=== PATIENT | male | born 1990 | race Caucasian/White ===

== ENCOUNTER 2018-01-03 00:32 | Emergency (ER) | payer SELFPAY ==
[~2018-01-03] VITALS: Ht 177.8 cm; Wt 86.2 kg
[2018-01-03 00:58] VITALS: BP 120/72
== END 2018-01-03 03:03 | disposition left against medical advice (07) ==
LOC: ER 00:32
DX: R07.81 Pleurodynia (principal); Z53.21 Procedure and treatment not carried out due to patient leaving prior to being seen by health care provider

== ENCOUNTER 2020-04-23 22:25 | Emergency (ER) | payer MEDICAID ==
[~2020-04-23] VITALS: Ht 177.8 cm; Wt 95.3 kg
[2020-04-24] MEDS ORDERED: THIAMINE INJ 100 MG in SODIUM CHLORIDE 0.9% 1,000 ML IV ONE (00:45)
[2020-04-24] MEDS ORDERED: THIAMINE 100mg/ml INJ (200mg/2ml VIAL) ONE (01:16)
[2020-04-24 01:37] VITALS: BP 97/64
[2020-04-24 01:52] LABS: Basophils # (auto) 0 10 ^3/uL (0-0.2); Basophils % (auto) 0.5 % (0.0-2.0); Eosinophils # (auto) 0.1 10 ^3/uL (0-0.8); Hematocrit 47.8 % (41.0-53.0); Hemoglobin 16.3 g/dL (13.5-17.5); Lymphocytes # (auto) 3.6 10 ^3/uL (0.4-5.4); Lymphocytes % (auto) 49.9 % (10.0-50.0); Mean Corpuscular Hemoglobin 32.8 pg (28.0-32.0); Mean Corpuscular Hgb Conc. 34.2 g/dL (32.0-36.0); Mean Corpuscular Volume 96.1 fL (80.0-100.0); Monocytes # (auto) 0.6 10 ^3/uL (0-1.3); Monocytes % (auto) 8.7 % (0.0-12.0); Neutrophils # (auto) 2.8 10 ^3/uL (1.6-8.6); Neutrophils % (auto) 38.9 % (37.0-80.0); Nucleated Red Blood Cells % 0.1 %; Platelet Count (auto) 270 10^3/uL (140-450); Red Blood Cells 4.98 10^6/uL (4.5-5.90); Red Cell Distribution Width 13.4 % (11.8-14.3); White Blood Cell 7.3 10^3/uL (4.4-10.8)
[2020-04-24 02:11] LABS: Albumin 3.6 g/dL (3.4-5.0); BUN/Creatinine Ratio 7.5; Calcium 8.2 mg/dL (8.5-10.1); Potassium 3.7 mmol/L (3.5-5.1)
[2020-04-24 02:14] LABS: Bilirubin, Total 0.3 mg/dL (0.2-1.0); Total Protein 7.8 g/dL (6.4-8.2)
[2020-04-24 02:21] LABS: Urine Amorphous Crystal FEW /hpf (None Seen); Urine Bacteria FEW /hpf (None Seen); Urine Blood 2+ /uL (Negative); Urine Specific Gravity 1.004 (1.001-1.035); Urine WBC <1 /hpf (0 - 3)
[2020-04-24 02:31] LABS: Barbiturate Scree,Urine NEGATIVE (NEGATIVE); Benzodiazephine Screen, Urine NEGATIVE (NEGATIVE); Cannabinoid Screen, Urine NEGATIVE (NEGATIVE); Cocaine Screen, Urine NEGATIVE (NEGATIVE); Opiate Scree,Urine NEGATIVE (NEGATIVE); Phencyclidine Screen, Urine NEGATIVE (NEGATIVE)
[2020-04-24 02:41] LABS: Amphetamine Screen, Urine NEGATIVE (NEGATIVE)
== END 2020-04-24 03:03 | disposition home or self-care (01) ==
LOC: EDBD 22:25 → ER 22:31
DX: S80.11XA Contusion of right lower leg, initial encounter (principal); W18.30XA Fall on same level, unspecified, initial encounter; Y93.89 Activity, other specified; Y92.89 Other specified places as the place of occurrence of the external cause; Y99.8 Other external cause status
CPT/HCPCS: 36415; 73502; 73552; 73562; 73590; 80053; 80307; 80320; 81001; 82550; 85025; 96365; 99284; J3411; J7030

== ENCOUNTER 2023-03-17 21:40 | Emergency (ER) | payer MEDICAID ==
[~2023-03-17] VITALS: Ht 177.8 cm; Wt 95.4 kg
[2023-03-17 22:56] VITALS: BP 127/75; PULSE 106; RESP 18; TEMP 98.5; O2SAT 94
[2023-03-17] MEDS ORDERED: CEPH500C PO (23:30)
[2023-03-17] MEDS ORDERED: KETOROLAC TROMETH 30 MG/ML 1ML VIAL IM ONE (23:30)
[2023-03-17] MEDS ORDERED: IBUP-1455 PO (23:30)
== END 2023-03-17 23:31 | disposition home or self-care (01) ==
LOC: ER 21:40
DX: S93.402A Sprain of unspecified ligament of left ankle, initial encounter (principal); K08.89 Other specified disorders of teeth and supporting structures; Z79.1 Long term (current) use of non-steroidal anti-inflammatories (NSAID); Z79.899 Other long term (current) drug therapy; Z88.0 Allergy status to penicillin; Z88.1 Allergy status to other antibiotic agents; X58.XXXA Exposure to other specified factors, initial encounter; Y93.89 Activity, other specified; Y92.89 Other specified places as the place of occurrence of the external cause; Y99.8 Other external cause status
CPT/HCPCS: 73610; 96372; 99283; J1885

== ENCOUNTER 2023-08-10 16:29 | Emergency (ER) | payer MEDICAID ==
[~2023-08-10] VITALS: Ht 175.3 cm; Wt 75.0 kg
[~2023-08-10 16:29] MED LIST: CEPH500C PO; IBUP-1455 PO
[2023-08-10 16:40] VITALS: BP 118/70; PULSE 68; RESP 18; O2SAT 95
== END 2023-08-10 17:14 | disposition left against medical advice (07) ==
LOC: ER 16:29
DX: S09.8XXA Other specified injuries of head, initial encounter (principal); Z53.21 Procedure and treatment not carried out due to patient leaving prior to being seen by health care provider; W22.8XXA Striking against or struck by other objects, initial encounter; Y93.89 Activity, other specified; Y92.89 Other specified places as the place of occurrence of the external cause; Y99.8 Other external cause status

== ENCOUNTER 2024-11-24 19:46 | Emergency (ER) | payer MEDICAID ==
[~2024-11-24] VITALS: Ht 177.8 cm; Wt 90.7 kg
[~2024-11-24 19:46] MED LIST changes: -CEPH500C PO; +LEVO500T91 PO
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
[2024-11-24] MEDS: TETANUS-DIPTH-ACEL PERTUSSIS 0.5ML SYR Tdap IM ONE (22:49)
[2024-11-24 22:50] VITALS: PULSE 114; RESP 18; TEMP 97.4; O2SAT 96
[2024-11-24 22:53] VITALS: BP 138/90
[2024-11-24] MEDS: fentaNYL CITRATE 100 MCG/2 ML VL IM ONE (22:53)
== END 2024-11-24 23:30 | disposition home or self-care (01) ==
LOC: EDBD 19:46 → ER 19:54
DX: S01.111A Laceration without foreign body of right eyelid and periocular area, initial encounter (principal); S01.312A Laceration without foreign body of left ear, initial encounter; S01.81XA Laceration without foreign body of other part of head, initial encounter; Z88.0 Allergy status to penicillin; Z88.1 Allergy status to other antibiotic agents; Z79.899 Other long term (current) drug therapy; Y04.2XXA Assault by strike against or bumped into by another person, initial encounter; Y93.89 Activity, other specified; Y92.59 Other trade areas as the place of occurrence of the external cause; Y99.8 Other external cause status
CPT/HCPCS: 12015; 70110; 70450; 72040; 90471; 90715; 96372; 99285; J3010; J2003

== ENCOUNTER 2025-01-15 10:37 | Emergency (ER) | payer MEDICAID ==
[~2025-01-15] VITALS: Ht 177.8 cm; Wt 89.5 kg
[2025-01-15 11:00] VITALS: BP 137/85; PULSE 83; RESP 16; TEMP 98.3; O2SAT 95
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
--- NOTE | 2025-01-15 12:32 | DVH ---
CLINICAL INDICATION: pain; r/o fracture to 5th phalanx. Punched wall TECHNIQUE: 3 radiographic views of the right hand were obtained. Comparison: None FINDINGS/IMPRESSION: Nondisplaced fracture of the base of the 5th metacarpal bone.
== END 2025-01-15 12:22 | disposition home or self-care (01) ==
LOC: ER 10:37
DX: S62.346A Nondisplaced fracture of base of fifth metacarpal bone, right hand, initial encounter for closed fracture (principal); Z88.0 Allergy status to penicillin; W22.01XA Walked into wall, initial encounter; Y93.89 Activity, other specified; Y92.89 Other specified places as the place of occurrence of the external cause; Y99.8 Other external cause status
CPT/HCPCS: 29125; 73130

== ENCOUNTER 2025-01-28 21:55 | Emergency (ER) | payer MEDICAID ==
[~2025-01-28] VITALS: Ht 177.8 cm; Wt 86.4 kg
[2025-01-28 22:10] VITALS: BP 125/85; PULSE 120; RESP 20; TEMP 97.7; O2SAT 95
--- NOTE | 2025-01-28 22:16 | ED.PDOC ---
HPI Comments 34 y/o M presents with laceration to right elbow s/p fall injury. Patient reports slipping on a sock and falling and hitting his right elbow onto a plastic dog bowl from a standing position. No lost of consciousness. Bleeding controlled. Recent pertinent history of right forearm fracture; said arm in cast. Denies any additional injuries, weakness, numbness, tingling, or further associated symptoms. Time Seen by MD: 10:00 Primary Care Provider: NONE Reviewed Notes: Nurses Notes, Medications, Allergies Allergies: Coded Allergies: Amoxicillin (Verified Allergy, Unknown, 03/17/23) Penicillins (Verified Allergy, Unknown, 03/17/23) Home Meds Active Scripts Levofloxacin Hemihydrate (LEVOFLOXACIN) 500 Mg Tab, 1 TAB PO DAILY, #10 TAB Prov:ANISHA SALAZAR DO 03/17/24 Ibuprofen Micronized (Ibuprofen) 800 Mg Tab, 800 MG PO Q6HP PRN, #30 TAB 0 Ref ills Prov:TASHA JACQUES 03/17/23 Information Source: Patient Complexity: Simple Laceration Length (cm): 2 Skin Type: Linear Past Medical History PAST MEDICAL HISTORY: Denies Surgical History: Denies all surgeries Family History Family History: Reviewed,noncontributory to illness Social History Smoker: Non-Smoker Alcohol: Occasionally Drugs: Unknown Lives In: Home All Other Systems: Reviewed and Negative (Comprehensive review of systems are negative unless stated in HPI) Physical Exam General Appearance: No Apparent Distress, Normal HEENT: Normal ENT Inspection, Pharynx Normal, TMs Normal Neck: Full Range of Motion, Non-Tender, Normal, Normal Inspection Respiratory: Chest Non-Tender, Lungs Clear, No Accessory Muscle Use, No Respiratory Distress, Normal Breath Sounds Cardiovascular: No Edema, No JVD, No Murmur, No Gallop, Normal Peripheral P ulses, Regular Rate/Rhythm Breast Exam: Deferred Gastrointestinal: No Organomegaly, Non Tender, No Pulsatile Mass, Normal Bowel Sounds, Soft Genitalia: Deferred Pelvic: Deferred Rectal: Deferred Extremities: No calf tenderness, Normal capillary refill, Normal range of motion, Non-tender, No pedal edema, Other (right forearm in cast) Musculoskeletal : Apperance: Normal Neurologic: Alert, outpatient program coordinator II-XII nml as Tested, No Motor Deficits, Normal Affect, Normal Mood, No Sensory Deficits Cerebellar Function: Normal Reflexes: Normal Skin: Dry, Lacerations (right elbow, 2cm in length ), Normal Color, Warm Lymphatic: No Adenopathy Was a procedure done? Was a procedure done?: Yes Sedation Sedation?: No Laceration Repair : Location right elbow Length 2cm Laceration Repair Prep: Saline, Shur-Clens, by Irrigation, Manual Scrub Laceration Repair Wound Comple: epidermis/dermis repair Laceration Repair: Number of sutures (3x 3.0 Ethilon suture) Informed consent obtained: Yes Risks, benefits, and alternati: Yes Differential diagnosis Generic Laceration: Retained Foriegn Body, Abrasion/Contusion, Laceration, Avulsion X-Ray, Labs, Meds, VS Vital Signs Date Time Temp Pulse Resp B/P (MAP) Pulse Ox O2 Delivery O2 Flow Rate FiO2 01/28/25 22:10 97.7 120 20 125/85 (98) 95 97.7 Current Medications Medications (Trade) Dose Ordered Sig/Joel Route Start Time Stop Time Status Last Admin Lidocaine HCl (Xylocaine 1%) 10 ml ONCE ONCE ID 01/28/25 22:15 01/28/25 22:16 DC 01/28/25 22:36 X-Ray, Labs, Meds, VS Comment See procedure note. Volar splint replaced blood for laceration. Positive CSM before and after. He has patient's suture removal in 5-7 days. Follow up his PCP 2-3 days as necessary. Over the Counter Tylenol or Motrin as needed for the pain per labeled dosing instructions. ED return precautions given patient indicates understanding agrees with discharge plan of care. Time of 1ST Reevaluation: 10:30 Reevaluation 1ST: Unchanged Time of 2ND Reevaluation: 22:27 Reevaluation 2ND: Improved Patient Education/Counseling: Diagnosis, Treatment, Need For Follow Up Family Education/Counseling: Diagnosis, Treatment, Prognosis, Need For Follow Up Departure 1 Departure Time of Disposition: 22:37 Impression: Primary Impression: Laceration of elbow without complication Qualified Codes: S51.011A - Laceration without foreign body of right elbow, initial encounter Disposition: HOME / SELF CARE / HOMELESS Condition: Stable Discharged With: Spouse Critical Care Note Critical Care Time?: No Stability Stability form required: No Heart Score Heart Score: Heart Score Response (Comments) Value History N/A 0 EKG N/A 0 Age N/A 0 Risk Factors N/A 0 Troponin N/A 0 Total 0 I personally scribed for ER ([email or web address]) on 01/28/25 at 22:16. Electronically submitted by Anshu Phillips ([email or web address]). I personally scribed for ER ([email or web address]) on 01/28/25 at 22:24. Electronically submitted by Anshu Phillips ([email or web address]). ER Jan 28, 2025 22:16 ELVA DHILLON [facility] Jan 28, 2025 22:27
[2025-01-28] MEDS: LIDOCAINE 1% HCL (LOCAL ANESTH.) INJ 20ML MDV ID ONE (22:36)
== END 2025-01-28 22:38 | disposition home or self-care (01) ==
LOC: ER 21:55
DX: S51.011A Laceration without foreign body of right elbow, initial encounter (principal); Z88.0 Allergy status to penicillin; W19.XXXA Unspecified fall, initial encounter; Y93.89 Activity, other specified; Y92.89 Other specified places as the place of occurrence of the external cause; Y99.8 Other external cause status
CPT/HCPCS: 12001; 99282; J2003; 12011